=== PATIENT | female | born 1940 | race Caucasian/White ===

== ENCOUNTER 2019-08-08 11:51 | Emergency (ER) | payer MEDICARE, SELFPAY ==
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
[2019-08-08 11:55] VITALS: BP 151/71; PULSE 82; RESP 16; TEMP 36.7; O2SAT 99
--- NOTE | 2019-08-08 12:04 | ED.GENADULT ---
HPI - General Adult General Chief complaint: Wound/Laceration Stated complaint: tore toenail off Time Seen by Provider: 08/08/19 12:05 Source: patient and RN notes reviewed Mode of arrival: ambulatory Limitations: no limitations History of Present Illness HPI narrative: 78-year-old female presents with complaints of left great toenail damage, toe pain and swelling SPA COORDINATOR. Pressure applied to control bleeding. Hurts to bear weight. No radiation of pain. No numbness, tingling, or loss of mobility. Exacerbating factor applying weight. Denies inability to bear weight. Denies discoloration of toe (s). Denies suspect foreign body. Denies fever or chills. The patient reports she have not been diagnosed with COVID-19. The patient reports she is not waiting for the results of a COVID-19 lab test. The patient reports she do not have fever, chills, weakness, fatigue, myalgia, or facial swelling. The patient reports she do not have a new or worsening cough or shortness of breath. Denies chest pain. The patient reports she do not have any rhinorrhea, congestion, sore throat, nausea, vomiting, abdominal pain, and diarrhea. Tolerating po intake well. Denies recent traveling. Denies concerns for COVID-19 or exposures been home since [id number] order today was her first day out for essential household needs and injured her toe. At this time, patient is not suspected of having COVID-19. Some parts of this dictation were generated by voice recognition software and may contain typographical and/or grammatical inaccuracies. Related Data Home Medications Medication Instructions Recorded Confirmed Calcium 500 With D 1 cap PO DAILY 08/08/19 08/08/19 Vitamin C 1 tab-cap PO DAILY 08/08/19 08/08/19 enalapril maleate 5 mg PO DAILY 08/08/19 08/08/19 levothyroxine 50 mcg PO DAILY 08/08/19 08/08/19 lorazepam 1 mg PO TID 08/08/19 08/08/19 Allergies Allergy/AdvReac Type Severity Reaction Status Date / Time acetaminophen [From Vicodin] Allergy Verified 08/08/19 12:07 gabapentin Allergy Verified 08/08/19 12:07 hydrocodone [From Vicodin] Allergy Verified 08/08/19 12:07 hydromorphone [From Dilaudid] Allergy Verified 08/08/19 12:07 meperidine [From Demerol] Allergy Verified 08/08/19 12:07 Review of Systems Review of Systems: Narrative: CONSTITUTIONAL: Denies fever, chills, sweats. EYES: Denies visual changes, redness, discharge. ENT: Denies rhinorrhea, congestion, sore throat, otalgia. CARDIOVASCULAR: Denies chest pain, palpitations, edema. RESPIRATORY: Denies dyspnea, wheezing, cough. GASTROINTESTINAL: Denies abdominal pain, nausea, vomiting, diarrhea. GENITOURINARY: Denies dysuria, hematuria, abnormal discharge. SKIN: Denies rash or itching. MUSCULOSKELETAL: Denies acute back pain or myalgia. Complains of pain and swelling to left toe with damage toenail. NEUROLOGIC: Denies numbness or focal weakness. PSYCHIATRIC: Denies anxiety or depression. All systems reviewed & are unremarkable except as noted in HPI and below. [facility] Past Medical History Medical History (Updated 08/14/19 @ 15:17 by DELILAH Diamond) Anxiety Back pain with history of spinal surgery Hypercholesteremia Hypertension Surgical History Surgical History (Updated 08/09/19 @ 00:00 by Silvana Martinez) History of spinal surgery Hx of appendectomy Family History Family History (Updated 08/08/19 @ 13:11 by DELILAH Diamond) Father , in 50's from an explosive accident No problems noted. Mother Lung cancer Social History Social History (Updated 08/08/19 @ 13:12 by DELILAH Diamond) Smoking status: Former smoker Tobacco type: cigarettes Second hand tobacco smoke exposure: No Smoking end date: 03/03/69 Additional smoking assessment comments: quite 50 years ago Alcohol intake: never Substance use: never Living arrangements: with family Occupation/Education: retired Gender identity (
[2019-08-08] MEDS: TETANUS,DIPHTHERIA,AC PERTUSSIS ADULT (0.5 ML) BOOSTRIX IM (12:17)
--- NOTE | 2019-08-08 13:22 | PC.NURSE ---
post op shoe applied pt able to ambulate without difficulty. Bulky dressing applied to area.
== END 2019-08-08 13:30 | disposition home or self-care (01) ==
PROVIDERS: Emergency Provider Nurse Practitioner Family; PCP Family Medicine
DX: S92.422B Displaced fracture of distal phalanx of left great toe, initial encounter for open fracture (principal); X58.XXXA Exposure to other specified factors, initial encounter; Z87.891 Personal history of nicotine dependence; I10 Essential (primary) hypertension; E78.00 Pure hypercholesterolemia, unspecified; Z23 Encounter for immunization
CPT/HCPCS: 11760; 73660; 90471; 90715; 99204; G0463

== ENCOUNTER 2021-03-14 11:13 | Emergency (ER) | payer MEDICARE, SELFPAY ==
[2021-03-14] VITALS (14 sets, daily range): BP systolic 114–162; BP diastolic 59–76; PULSE 100–110; RESP 20–22; TEMP 37; O2SAT 95–100
--- NOTE | ~2021-03-14 | CT_ITS ---
EXAMINATION: CT soft tissue neck w con EXAM DATE: 03/14/2021 13:10 INDICATION: Worsening sore throat, patient feels it is swollen . TECHNIQUE: Spiral CT of the neck was performed following intravenous injection of 75 mL Omnipaque 350 . Axial, coronal and sagittal images were reviewed. The dose-length product (DLP) for this examinat ion was 287.15 mGy-cm. The exposure was tailored according to patient size (auto mA exposure control ), and iterative reconstruction (ASIR) was used as additional dose reduction technique. There is no prior study for comparison. FINDINGS: There is thickening of the aryepiglottic folds from edema, and edema of the piriform sinuse s. The epiglottis is normal in thickness. The glottis itself does not appear edematous. The thyroid g land is unremarkable. The submandibular and parotid glands are symmetric. There is no cervical ly mphadenopathy. There are no masses identified. The superior mediastinum is unremarkable. Paraph aryngeal and pre-glottic fat planes are preserved. The opacified vasculature is patent. Mild left c arotid bulb arteriosclerosis without stenosis. Patient has had bilateral ocular lens surgery. Mild to moderate right, mild left maxillary sinus mucoperiosteal thickening. Bilateral katie bullosa with the left opacified. Bilateral tree-in-bud distribution lung opacities which typically indicate s endobronchial spread of infection, possibly tuberculosis. Advanced disc disease at C5-6 and 6-7. A dvanced cervical arthropathy. IMPRESSION: 1. Edematous aryepiglottic folds and piriform sinuses. Normal epiglottis thickness. No retropharynge al abscess. 2. Right upper lobe predominant tree-in-bud pattern airspace disease. Probably endobronchial spread of infection, possibly tuberculosis. Reviewed, dictated and finalized at location A. O UNIFIED COMMUNICATIONS ENGINEER IMPRESSION: 1. Edematous aryepiglottic folds and piriform sinuses. Normal epiglottis thick ness. No retropharyngeal abscess. 2. Right upper lobe predominant tree-in-bud pattern airspace disease. Probably endobronchial spread of infection, possibly tuberculosis.
--- NOTE | 2021-03-14 11:35 | ED.GENADULT ---
HPI - General Adult General Chief complaint: Shortness of Breath/Dyspnea Stated complaint: DIFFICULTY BREATHING Time Seen by Provider: 03/14/21 11:13 History of Present Illness HPI narrative: 80-year-old female presenting the emergency department for evaluation of worsening sore throat. Patient was evaluated at an outside urgent care and had influenza and COVID testing which were both negative. Patient was started on prednisone for suspected laryngitis. Patient presents emerged department today complaining of worsening sore throat and difficulty swallowing. Patient states she has had difficulty taking her daily meds due to the sore throat. Related Data Home Medications Medication Instructions Recorded Confirmed Calcium 500 With D 1 cap PO DAILY 08/08/19 08/08/19 Vitamin C 1 tab-cap PO DAILY 08/08/19 08/08/19 enalapril maleate 5 mg PO DAILY 08/08/19 08/08/19 levothyroxine 50 mcg PO DAILY 08/08/19 08/08/19 lorazepam 1 mg PO TID 08/08/19 08/08/19 alendronate mg PO 03/14/21 gemfibrozil mg 03/14/21 lorazepam 03/14/21 prednisone 03/14/21 Allergies Allergy/AdvReac Type Severity Reaction Status Date / Time acetaminophen [From Vicodin] Allergy Verified 08/08/19 12:07 gabapentin Allergy Verified 08/08/19 12:07 hydrocodone [From Vicodin] Allergy Verified 08/08/19 12:07 hydromorphone [From Dilaudid] Allergy Verified 08/08/19 12:07 meperidine [From Demerol] Allergy Verified 08/08/19 12:07 Review of Systems Review of Systems: CONSTITUTIONAL: Denies fever, chills, or sweats. EYES: Denies visual changes, redness, or discharge. ENT: Patient does report worsening sore throat, she states it feels like there is a knot in her throat. CARDIOVASCULAR: Denies chest pain, palpitations, or edema. RESPIRATORY: Denies cough or dyspnea. GASTROINTESTINAL: Denies abdominal pain, nausea, vomiting, or diarrhea. GENITOURINARY: Denies dysuria or hematuria. SKIN: Denies rash or itching. MUSCULOSKELETAL: Denies back pain, joint pain, or myalgia. NEUROLOGIC: Denies headache, numbness, or weakness. PSYCHIATRIC: Denies anxiety or depression. [facility] Past Medical History Medical History (Updated 03/14/21 @ 14:32 by Shailesh Turner MD) Anxiety Back pain with history of spinal surgery Hypercholesteremia Hypertension Surgical History Surgical History (Updated 08/09/19 @ 00:00 by Silvana Martinez) History of spinal surgery Hx of appendectomy Family History Family History (Updated 08/08/19 @ 13:11 by DELILAH Diamond) Father , in 50's from an explosive accident No problems noted. Mother Lung cancer Social History Social History (Updated 08/08/19 @ 13:12 by DELILAH Diamond) Smoking status: Former smoker Tobacco type: cigarettes Second hand tobacco smoke exposure: No Smoking end date: 03/03/69 Additional smoking assessment comments: quite 50 years ago Alcohol intake: never Substance use: never Gender identity (if verbalized by the patient): Female Exam Narrative: APPEARANCE: Well appearing, no pain in distress, well-nourished. HEAD: normocephalic, atraumatic. EYES: PERRLA/EOMI, conjunctivae clear. NOSE: Normal no drainage EARS:TMS clear with good light reflex. THROAT: Normal posterior pharynx, no edema, patient handling her secretions well, some tenderness to palpation of the larynx NECK: Supple. No adenopathy, no masses. RESPIRATORY: Airway patent, respirations nonlabored. Clear to auscultation bilaterally, no rales, rhonchi, wheezing. No stridor CARDIOVASCULAR: Regular rate and rhythm without murmurs rubs or gallops. ABDOMINAL: Soft, nontender, nondistended, normal bowel sounds MUSCULOSKELETAL: Moves all extremities. Strength/ROM intact, No edema, No calf tenderness. NEURO: Alert. Cranial nerves II through XII intact. Good gait. Good coordination SKIN: Warm, dry. Normal Color PSYCHIATRIC: Normal affect/mood. Course Course Emergency Course: Patient was upd
--- NOTE | 2021-03-14 11:45 | PC.NURSE ---
Pt's daughter called out from room stating pt was having trouble breathing. RN to bedside, pt was previously laying nearly supine per pt request (chronic back pain). Pt was stridorous. Sat patient up, pt spit into tissues, coached through slow, deep breaths. Stridor resolved in less than one minute. Pt did not desat. HOB remains elevated, pt instructed to stay in sitting up position. Pt now calm with unlabored breathing. MD Turner made aware. Remains on monitor.
[2021-03-14 11:59] LABS: Basophils Absolute Auto 0.1 K/mm3 (0.0-0.1); Basophils Percent Auto 0.6 % (0.2-1.2); Eosinophils Absolute Auto 0.1 K/mm3 (0-0.3); Eosinophils Percent Auto 0.5 % (0-4.4); Hematocrit 36.9 % (37.0-47.0); Hemoglobin 11.9 g/dL (12.0-15.0); Immature Granulocyte Absolute 0.07 K/mm3 (0.00-0.031); Immature Granulocyte Percent A 0.7 % (0-0.5); Immature Platelet Fraction Pct 7.3 % (0.9-11.2); Lymphocytes Absolute Auto 1.09 K/mm3 (0.9-3.2); Lymphocytes Percent Auto 10.9 % (18.3-44.2); Mean Corpuscular HGB Conc 32.2 g/dl (32-36); Mean Corpuscular Hemoglobin 30.5 pg (26-34); Mean Corpuscular Volume 94.6 fl (80-100); Mean Platelet Volume 10.6 fl (7.4-10.4); Monocytes Absolute Auto 1.6 K/mm3 (0.1-0.6); Monocytes Percent Auto 15.8 % (2.6-8.5); Neutrophils Absolute Auto 7.2 K/mm3 (1.3-6.7); Neutrophils Percent Auto 71.5 % (45.5-73.1); Platelet Count Result 364 k/mm3 (150-375); Red Cell Distribution Width 12.2 % (11.5-14.5)
[2021-03-14] MEDS: fentaNYL CITRATE INJ (*CRX) 100 MCG/2 ML VIAL 27.2 MCG IV PUSH (12:29)
[2021-03-14 12:34] LABS: Alanine Aminotransferase 15 U/L (4-35); Albumin Level 4.1 g/dL (3.5-5.1); Alkaline Phosphatase 86 U/L (38-126); Anion Gap 12 mmol/L (8-16); Aspartate Amino Transferase 27 U/L (14-36); Bilirubin,Total 0.6 mg/dL (0.2-1.3); Blood Urea Nitrogen 21 mg/dL (7-17); Calcium 9.6 mg/dL (8.4-10.2); Carbon Dioxide 22 mmol/L (22-30); Chloride 106 mmol/L (98-107); Estimated Glomerular Filt Rate > 60; Glucose 100 mg/dL (65-110); Potassium 3.6 mmol/L (3.4-5.0); Sodium 140 mmol/L (137-145)
--- NOTE | 2021-03-14 15:35 | PC.NURSE ---
[facility] confirmed they received report. Spoke with April charge poster. Waiting ambulance transfer. Patient and patient's daughter updated.
== END 2021-03-14 18:23 | disposition short-term general hospital (02) ==
PROVIDERS: Emergency Provider Emergency Medicine; PCP Family Medicine
DX: R06.1 Stridor (principal); I10 Essential (primary) hypertension; E78.5 Hyperlipidemia, unspecified; F41.9 Anxiety disorder, unspecified
CPT/HCPCS: 36415; 70491; 80053; 85025; 85055; 87880; 96374; 99285; J3010; Q9967

== ENCOUNTER 2022-09-27 15:41 | Emergency (ER) | payer MEDICARE, SELFPAY ==
--- NOTE | ~2022-09-27 | XR_ITS ---
XR hip LT 2V w AP pelvis 09/27/2022 17:51 Indication: Left hip pain after recent fall Procedure: 3 views left hip including AP pelvis Comparison: No prior studies for comparison. Findings: There are fusion changes of the lumbar spine. There are surgical changes is transfixing the right femoral neck. Pelvic rings are intact. There is mild osteoarthritis of the hips. Osteopenia. M oderate colonic fecal loading. No acute fracture or traumatic malalignment. Impression: 1: No acute fracture. Reviewed, dictated and finalized at location A. Impression: 1: No acute fracture.
--- NOTE | ~2022-09-27 | XR_ITS ---
EXAMINATION: XR chest 1V 09/27/2022 17:51 INDICATION: Productive cough PROCEDURE: 2 view chest COMPARISON: No prior studies for comparison. FINDINGS: The lungs are clear. The cardiomediastinal silhouette is within normal limits. There are no pleural effusions. There is no pneumothorax suspected. There is evidence of chronic granulomatou s disease. IMPRESSION: 1: NO ACUTE CARDIOPULMONARY DISEASE. Reviewed, dictated and finalized at location A.
--- NOTE | ~2022-09-27 | CT_ITS ---
EXAMINATION: CT pelvis wo con DATE: 09/27/2022 22:19 INDICATION: Left hip pain. TECHNIQUE: Computed tomography (CT) of the pelvis was performed without intravenous contrast. The dos e-length product was 285.16 mGy-cm. Automated exposure control and iterative reconstruction technique were employed. COMPARISON: None FINDINGS: Pelvic rings are intact. No acute hip fracture. There is dynamic compression screw transfix ing the right femoral neck with an intramedullary mahogany in the femur. There is heterotopic ossification surrounding the right femoral neck. There are surgical changes consistent with fusion of the visuali zed aspects of the lower lumbar spine. Nonobstructive bowel gas pattern. Colonic diverticulosis witho ut evidence for diverticulitis. There is atherosclerosis of the aorta. No lymphadenopathy. No free ai r or free fluid. There is right renal cysts. IMPRESSION: 1. No acute fracture. Reviewed, dictated and finalized at location A. IMPRESSION: 1. No acute fracture.
[2022-09-27 16:19] VITALS: BP 142/84; PULSE 82; RESP 16; TEMP 36.6; O2SAT 97
[2022-09-27 21:49] VITALS: BP 174/86; PULSE 82; RESP 18; O2SAT 99
[2022-09-27] MEDS: KETOROLAC 30 MG/ML VIAL (*BKC) 15 MG IM (22:23)
--- NOTE | 2022-09-27 23:39 | ED.GENADULT ---
HPI - General Adult General Chief complaint: Back Pain/Injury Stated complaint: cough, back pain Time Seen by Provider: 09/27/22 21:48 History of Present Illness HPI narrative: Patient 81-year-old female who presents the emergency department with chief complaint of left sciatic/hip pain. The patient reports that for several days has been having pain in the left hip area and sciatic area the patient states that she put a call out to her primary care provider reports that the pain has gotten significantly worse and reports that the pain is worse with attempting to ambulate. Patient denies bowel or bladder incontinence denies foot drop denies numbness or tingling. The patient also reports for several days she has had a cough has been productive of yellow sputum but denies fever. Related Data Home Medications Medication Instructions Recorded Confirmed levothyroxine 50 mcg tablet See Rx Instructions .Route .COMPLEX 08/08/19 09/28/21 lorazepam 1 mg tablet 1 mg PO Q8H 08/08/19 09/28/21 alendronate 70 mg tablet 70 mg PO WEEKLY 03/14/21 09/27/21 gemfibrozil 600 mg tablet 600 mg PO BID 03/14/21 09/27/21 cholecalciferol (vitamin D3) 50 50 mcg PO DAILY 09/28/21 09/28/21 mcg (2,000 unit) capsule levothyroxine 75 mcg tablet See Rx Instructions .Route .COMPLEX 09/28/21 09/28/21 Allergies Allergy/AdvReac Type Severity Reaction Status Date / Time acetaminophen [From Vicodin] Allergy Verified 08/08/19 12:07 gabapentin Allergy Verified 08/08/19 12:07 hydrocodone [From Vicodin] Allergy Verified 08/08/19 12:07 hydromorphone [From Dilaudid] Allergy Verified 08/08/19 12:07 meperidine [From Demerol] Allergy Verified 08/08/19 12:07 Review of Systems Review of Systems: A 10 system review of systems was completed on the patient and is negative except for what is stated in the HPI. Nursing and ancillary documentation was reviewed. [facility] Past Medical History Medical History Anxiety Back pain with history of spinal surgery Hypercholesteremia Hypertension Hypertension Hypothyroidism Right femoral fracture Surgical History Surgical History History of spinal surgery Hx of appendectomy Family History Family History Father , in 50's from an explosive accident No problems noted. Mother Lung cancer Sibling Dementia Social History Social History Smoking packs per day: 1 Smoking cigarettes per day: 20.0 Years smoked: 17 Smoking pack-years: 17.00 Smoking status: Former smoker Tobacco type: cigarettes Second hand tobacco smoke exposure: No Smoking end date: 03/03/69 Additional smoking assessment comments: quite 50 years ago Alcohol intake: never Substance use: never Living arrangements: with family Occupation/Education: retired Gender identity (if verbalized by the patient): Female Exam Narrative: GENERAL: Well-appearing, well-nourished, and in no acute distress. HEAD: Normocephalic, atraumatic. EYES: PERRLA and EOMI. ENT: Nares clear, no rhinorrhea or epistaxis. Mucous membranes moist. NECK: Supple. CHEST: Clear to auscultation. No respiratory distress. HEART: Regular rate and rhythm. No murmur heard. Normal peripheral pulses. ABDOMEN: Soft, nontender, nondistended, normal active bowel sounds. EXTREMITIES: Normal range of motion. No edema. There is tenderness to palpation in the left SI joint area SKIN: Warm, dry, no rash. NEURO: No focal deficits. Alert and oriented x3. PSYCH: Normal mood and affect. Course Vital Signs Vital signs: Vital Signs Temperature 36.6 C 09/27/22 16:19 Pulse Rate 82 09/27/22 16:19 Respiratory Rate 16 09/27/22 16:19 Blood Pressure 142/84 H 09/27/22 16:19
== END 2022-09-27 23:54 | disposition home or self-care (01) ==
PROVIDERS: Emergency Provider Emergency Medicine; PCP Family Medicine
DX: M54.32 Sciatica, left side (principal); J06.9 Acute upper respiratory infection, unspecified; I10 Essential (primary) hypertension; E78.00 Pure hypercholesterolemia, unspecified; E03.9 Hypothyroidism, unspecified; F41.9 Anxiety disorder, unspecified; Z87.891 Personal history of nicotine dependence
CPT/HCPCS: 71045; 72192; 73502; 96372; 99284; J1100; J1885

== ENCOUNTER 2024-02-25 17:23 | Observation (INO) | payer MEDICARE, SELFPAY ==
--- NOTE | ~2024-02-25 | CT_ITS ---
EXAMINATION: CT cervical spine wo con DATE: 02/25/2024 18:47 INDICATION: Head injury. Fall. TECHNIQUE: Computed tomography (CT) of the cervical spine was performed without intravenous contrast. Automated exposure control and iterative reconstruction technique were employed. The dose-length pro duct was 105.27 mGy-cm. COMPARISON: None FINDINGS: There is 2 mm anterolisthesis of C3 on C4. There is 2 mm anterolisthesis of C5 on C6 and 2 mm anterolisthesis of C7 on T1. There is kyphosis of cervical spine. There is 7 degrees levocurvature . Vertebral body heights are normal. There is mildly decreased disc height at C3-C4. There is severel y decreased disc height from C4-C5 through C6-C7 and moderately decreased disc height at C7-T1. The f ollowing disc levels are specifically discussed: C2-C3: There is ankylosis of right uncovertebral joint without hypertrophy. There is ankylosis of the facet joints with severe hypertrophy. There is mild right neural foraminal stenosis. There is no denisse tral canal stenosis. C3-C4: There is severe bilateral uncovertebral joint osteoarthritis. There is severe bilateral facet joint osteoarthritis. There is moderate bilateral neural foraminal stenosis. There is mild central ca nal stenosis. C4-C5: There is severe bilateral uncovertebral joint osteoarthritis. There is severe right and modera te left facet joint osteoarthritis. There is moderate right and mild left neural foraminal stenosis. There is mild central canal stenosis. C5-C6: There is severe bilateral uncovertebral joint osteoarthritis. There is severe bilateral facet joint osteoarthritis. There is mild bilateral neural foraminal stenosis. There is moderate central ca nal stenosis. C6-C7: There is severe bilateral uncovertebral joint osteoarthritis. There is severe bilateral facet joint osteoarthritis. There is mild bilateral neural foraminal stenosis. There is mild central canal stenosis. C7-T1: There is mild bilateral uncovertebral joint osteoarthritis. There is severe bilateral facet suleiman int osteoarthritis. There is mild bilateral neural foraminal stenosis. There is no central canal sten osis. IMPRESSION: 1. No fracture. 2. Severe cervical spondylosis. Reviewed, dictated and finalized at location A. [facility]
--- NOTE | ~2024-02-25 | CT_ITS ---
EXAMINATION: CT brain wo con DATE: 02/25/2024 18:47 INDICATION: Head injury. Fall. TECHNIQUE: Computed tomography (CT) of the head was performed without intravenous contrast. The mA wa s adjusted according to patient size. Iterative reconstruction technique was employed. The dose-lengt h product was 605.33 mGy-cm. COMPARISON: None FINDINGS: There are scattered areas of low attenuation in the cerebral white matter. There is no intr acranial hemorrhage, acute infarction, or abnormal intracranial mass lesion. The ventricles are daisha l in size. There are likely changes of ocular lens replacement surgeries. There is mild mucosal thick ening in the paranasal sinuses. The mastoid air cells are normal. IMPRESSION: 1. Moderate nonspecific cerebral white matter disease, which likely represents chronic small vessel i schemic disease. Reviewed, dictated and finalized at location [facility]. [facility] IMPRESSION: 1. Moderate nonspecific cerebral white matter disease, which likely represents chronic small vessel ischemic disease.
[2024-02-25 17:31] VITALS: BP 138/66; PULSE 91; RESP 16; TEMP 36.6; O2SAT 98
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
--- NOTE | 2024-02-25 19:18 | PC.NURSE ---
1800: Pts daughter voices interest in information on hospice. State pt not eating or drinking sleeps most of day. PMD has suggested hospice to family. Dr. Wyatt informed
--- NOTE | 2024-02-25 21:31 | PM.IMHP ---
H&P: HPI History of Present Illness Date/Time: 02/25/24 21:31 Chief Complaint: Recurrent falls Narrative: Patient is an 83-year-old female with advanced Alzheimer's dementia, [facility] has been having recurrent falls lately was brought to the emergency room by her daughter according to daughter patient had a fall ground level early in the day brought her to the emergency room request comfort measures only declines all status. Patient has been admitted for comfort care measures only. EXAMINATION: CT brain wo con DATE: 02/25/2024 18:47 INDICATION: Head injury. Fall. TECHNIQUE: Computed tomography (CT) of the head was performed without intravenous contrast. The mA was adjusted according to patient size. Iterative reconstruction technique was employed. The dose-length product was 605.33 mGy-cm. COMPARISON: None FINDINGS: There are scattered areas of low attenuation in the cerebral white matter. There is no intracranial hemorrhage, acute infarction, or abnormal intracranial mass lesion. The ventricles are normal in size. There are likely changes of ocular lens replacement surgeries. There is mild mucosal thickening in the paranasal sinuses. The mastoid air cells are normal. IMPRESSION: 1. Moderate nonspecific cerebral white matter disease, which likely represents chronic small vessel ischemic disease. EXAMINATION: CT cervical spine wo con DATE: 02/25/2024 18:47 INDICATION: Head injury. Fall. TECHNIQUE: Computed tomography (CT) of the cervical spine was performed without intravenous contrast. Automated exposure control and iterative reconstruction technique were employed. The dose-length product was 105.27 mGy-cm. COMPARISON: None FINDINGS: There is 2 mm anterolisthesis of C3 on C4. There is 2 mm anterolisthesis of C5 on C6 and 2 mm anterolisthesis of C7 on T1. There is kyphosis of cervical spine. There is 7 degrees levocurvature. Vertebral body heights are normal. There is mildly decreased disc height at C3-C4. There is severely decreased disc height from C4-C5 through C6-C7 and moderately decreased disc height at C7-T1. The following disc levels are specifically discussed: C2-C3: There is ankylosis of right uncovertebral joint without hypertrophy. There is ankylosis of the facet joints with severe hypertrophy. There is mild right neural foraminal stenosis. There is no central canal stenosis. C3-C4: There is severe bilateral uncovertebral joint osteoarthritis. There is severe bilateral facet joint osteoarthritis. There is moderate bilateral neural foraminal stenosis. There is mild central canal stenosis. C4-C5: There is severe bilateral uncovertebral joint osteoarthritis. There is severe right and moderate left facet joint osteoarthritis. There is moderate right and mild left neural foraminal stenosis. There is mild central canal stenosis. C5-C6: There is severe bilateral uncovertebral joint osteoarthritis. There is severe bilateral facet joint osteoarthritis. There is mild bilateral neural foraminal stenosis. There is moderate central canal stenosis. C6-C7: There is severe bilateral uncovertebral joint osteoarthritis. There is severe bilateral facet joint osteoarthritis. There is mild bilateral neural foraminal stenosis. There is mild central canal stenosis. C7-T1: There is mild bilateral uncovertebral joint osteoarthritis. There is severe bilateral facet joint osteoarthritis. There is mild bilateral neural foraminal stenosis. There is no central canal stenosis. IMPRESSION: 1. No fracture. 2. Severe cervical spondylosis. Review of Systems Review of Systems: ROS unobtainable: Yes unobtainable due to mental status (Lethargy) [facility] Past Medical History Medical History Hypothyroidism Hypertension Right femoral fracture Back pain with history of spinal surgery Anxiety Hypercholesteremia Hypertension Surgical History Surgical History History of spinal surgery Hx of appendectomy Family History Family History Father , in 50's from an explosive accident No problems noted. Mother Lung cancer Sibling Dementia Social History Social History Smoking packs per day: 1 Smoking cigarettes per day: 20.0 Years smoked: 17 Smoking pack-years: 17.00 Smoking status: Former smoker Tobacco type: cigarettes Second hand tobacco smoke exposure: Yes Smoking end date: 03/03/69 Additional smoking assessment comments: quite 50 years ago Alcohol intake: never Substance use: never Living arrangements: with family Occupation/Education: retired Gender identity (if verbalized by the patient): Female Spiritual care concerns: No Meds Home Medications and Allergies Home Medications ?Medication ?Instructions ?Recorded ?Confirmed ?Type levothyroxine 50 mcg tablet See Rx Instructions .Route .COMPLEX 08/08/19 02/25/24 History lorazepam 1 mg tablet 1 mg PO Q8H 08/08/19 02/25/24 History gemfibrozil 600 mg tablet 600 mg PO BID 03/14/21 02/25/24 History levothyroxine 75 mcg tablet See Rx Instructions .Route .COMPLEX 09/28/21 02/25/24 History prednisone 20 mg tablet 40 mg (2 x 20 mg) PO DAILY 5 days 09/27/22 02/25/24 Rx #10 tabs acetaminophen 500 mg tablet 1,000 mg PO Q6H PRN pain 02/25/24 02/25/24 History ascorbic acid (vitamin C) 250 mg 250 mg PO DAILY 02/25/24 02/25/24 History tablet donepezil 10 mg tablet 10 mg PO DAILY 02/25/24 02/25/24 History epinephrine 0.3 mg/0.3 mL 0.3 mg IM .COMPLEX PRN anaphylaxis 02/25/24 02/25/24 History injection, auto-injector ibandronate 150 mg tablet 150 mg PO .fri-fri02/25/24 02/25/24 History mecobalamin (vitamin B12) 1,000 1,000 mcg PO DAILY 02/25/24 02/25/24 History mcg chewable tablet memantine 10 mg tablet 10 mg PO DAILY 02/25/24 02/25/24 History mirtazapine 15 mg tablet 15 mg PO HS 02/25/24 02/25/24 History multivitamin-iron sulfate 15 1 tablet PO DAILY 02/25/24 02/25/24 History mg-folic acid 400 mcg tablet (Tab-A-Celena Multivitamin w-iron) polyethylene glycol 3350 17 gram 17 g PO DAILY PRN constipation 02/25/24 02/25/24 History oral powder packet polysorbate 80-glycerin 1 %-1 % 1 drp ophthalmic (eye) TID PRN dry 02/25/24 02/25/24 History eye drops eye(s) Allergies Allergy/AdvReac Type Severity Reaction Status Date / Time acetaminophen (From Vicodin) Allergy Verified 08/08/19 12:07 gabapentin Allergy Verified 08/08/19 12:07 hydrocodone (From Vicodin) Allergy Verified 08/08/19 12:07 hydromorphone (From Dilaudid) Allergy Verified 08/08/19 12:07 meperidine (From Demerol) Allergy Verified 08/08/19 12:07 Vital Signs Vital Signs - 24 hr 02/25/24 17:31 Temperature 97.8 F Pulse Rate 91 Respiratory Rate 16 Blood Pressure 138/66 Pulse Oximetry 98 Oxygen Delivery Room Air Exam Narrative: Patient is laying in bed Const: General: comfortable, no acute distress, well developed, ill appearing chronically (Patient looks terminal) and cachectic Nutritional Appearance: cachectic Orientation/consciousness: oriented to person and lethargic HENMT: Head: normal to inspection, normocephalic and atraumatic Ears: hearing grossly normal bilaterally Face/Nose/Sinus: normal facial exam Face and sinus: normal facial exam Other: Bilateral temporal muscle wasting Eyes: General: appearance normal, both eyes and all related structures Pupils: Equal, round and reactive pupils present EOM: EOMs intact bilaterally Neck: Neck: full ROM, no lymphadenopathy and no JVD Thyroid: thyroid normal Lymphatic: no lymphadenopathy noted Resp: Effort & Inspection: normal respiratory effort and able to speak in complete sentences Auscultation: clear to auscultation bilaterally Cardio: Jugular venous distension: no JVD Rate: regular rate Rhythm: regular rhythm Heart sounds: S1 normal heart sound present and S2 normal heart sound present GI: GI Palp: Yes Soft to palpation and Yes No hepatosplenomegaly present : General: Yes deferred Skin: Rashes: no rashes Wounds: no wounds Neuro: General: oriented to person Cranial nerves: Yes CN's II-XII intact bilaterally and Yes Equal, round and reactive pupils present Cognition (Neuro): abnormal cognition (Lethargy) Speech: normal speech Gait exam (Neuro): Unable to assess gait Extrem: General: normal to inspection, full ROM, no joint enlargement and no pedal edema Assessment and Plan Assessment and plan (1) Multiple falls: Code(s): R29.6 - Repeated falls Status: Acute Assessment and Plan: Comfort care measures only (2) Adult failure to thrive: Code(s): R62.7 - Adult failure to thrive Status: Acute Assessment and Plan: Comfort care measures only (3) Comfort measures only status: Code(s): Z51.5 - Encounter for palliative care Status: Acute Assessment and Plan: Discussed with daughter Hospitalist [facility] Advance Care Plan I have confirmed that the patient's Advanced Care Plan is present, code status is documented, or surrogate decision maker is listed in patient medical record.: Yes Medication Reconciliation I have utilized all available resources to obtain, update and review the patients current medications (includes all prescriptions, OTC, herbals, cannabis, and nutritional supplements).: Yes
--- NOTE | 2024-02-25 21:31 | PC.NURSE ---
Pt to be comfort measures only, Dr. Birch and pt's daughter Emma and Dr. birch are witnesses.
[2024-02-25 22:18] VITALS: BP 114/63; PULSE 95; RESP 16; TEMP 36.4; O2SAT 96
[2024-02-25 22:56] VITALS: BP 118/54; PULSE 90; RESP 18; TEMP 36.6; O2SAT 95; BMI 16.0
--- NOTE | 2024-02-25 23:17 | ADMGEN ---
This patient, Anita Lopez, was admitted to Medical Room 347-. Patient/family oriented to hospital policies and general routines including ID bracelet, bed and alarms, visiting hours, pain management, procedures, bathroom and other care routines, personal items, smoking policy, room service/diet, and visiting hours. Information on how to activate the Rapid Response Team has been discussed. Patient/Family are encouraged to report perceived risks to care and to ask questions if they do not understand what they are told or what they should do.
[2024-02-26 06:00] VITALS: BP 120/56; PULSE 94; RESP 18; TEMP 36.6; O2SAT 98
[2024-02-26] MEDS: SODIUM CHLORIDE 0.9% IV 1,000 ML 125 ML IV CONT (06:01)
[2024-02-26 07:43] VITALS: O2SAT 96
[2024-02-26 08:00] VITALS: BP 112/54; PULSE 86; RESP 16; TEMP 36.8; O2SAT 96
--- NOTE | 2024-02-26 12:13 | P.PNIM_ITS ---
Progress Note: A&P Assessment and Plan (1) Multiple falls: Code(s): R29.6 - Repeated falls Status: Acute Assessment and Plan: Comfort care measures only 02/26/24: * Fall precautions for safety. (2) Adult failure to thrive: Code(s): R62.7 - Adult failure to thrive Status: Acute Assessment and Plan: Comfort care measures only 02/26/24: * Care coordination consult for Hospice initiation. * PRN Morphine and Ativan. * Discussed hospice process with daughter and she is in agreement. (3) Comfort measures only status: Code(s): Z51.5 - Encounter for palliative care Status: Acute Assessment and Plan: Discussed with daughter Time Spent With Patient Time with patient: 25 - 35 minutes Subjective Date/time seen: 02/26/24 12:13 Interval history: This pt was evaluated at the bedside this AM with her daughter present as well as the RN and myself as I was told this AM by RN that the pt did not want to be a DNR. Pt was questioned together and was found that her memory is waxing and waning and she is overall not deemed to be decisional. She has continued memory deficit and falls asleep during conversation. She is obviously malnourished and her daughter who is POA continues to endorse wanting Hospice at this time as she is not improving. No acute distress noted. Review of Systems 2 Review of Systems: All systems reviewed & are unremarkable except as noted in HPI and below Exam Const: General: comfortable and no acute distress Other: Thin and emaciated female lying supine in no acute distress. She appears very fatigued and falls asleep talking. HENMT: Mouth: Yes dry mucous membranes Eyes: General: appearance normal, both eyes and all related structures Neck: Neck: supple and no JVD Resp: Effort & Inspection: normal respiratory effort Auscultation: diminished lung sounds Other: Diminished due to decreased effort. Cardio: Rate: regular rate Rhythm: regular rhythm Heart sounds: no gallops, no murmurs and no rubs GI: Inspection: non-distended GI Palp: Yes Soft to palpation, No Tenderness to palpation present (GI) and No Guarding due to palpation present (GI) Auscultation: normal bowel sounds Skin: General skin exam: No normal color (pale) and no rashes or lesions noted Rashes: no rashes noted Wounds: wounds noted (abrasion to left elbow) Neuro: Speech: normal speech Other: generalized, non-focal weakness present. Extrem: General: normal to inspection and no edema Psych: Other: Flat affect Objective Data Vital Signs Vital Signs: Vital Signs - 24 hr 02/25/24 17:31 02/25/24 22:18 02/25/24 22:56 Temperature 97.8 F 97.6 F 97.8 F Pulse Rate 91 95 90 Respiratory Rate 16 16 18 Blood Pressure 138/66 114/63 118/54 L Pulse Oximetry 98 96 95 Oxygen Delivery Room Air Fraction of Inspired Oxygen 02/26/24 06:00 02/26/24 07:43 02/26/24 08:00 Temperature 97.8 F 98.2 F Pulse Rate 94 86 Respiratory Rate 18 16 Blood Pressure 120/56 L 112/54 L Pulse Oximetry 98 96 96 Oxygen Delivery Room Air Fraction of Inspired Oxygen 21 Intake/Output Intake/Output: Intake & Output 02/23/24 02/24/24 02/25/24 02/26/24 23:59 23:59 23:59 23:59 Intake Total 170 Output Total 250 Balance -80 Meds/Results Medications: Active Medications Generic Name Dose Route Start Last Admin Trade Name Freq PRN Reason Stop Dose Admin Sodium Chloride 1,000 mls @ 125 mls/hr 02/25/24 21:40 02/26/24 06:01 Normal Saline Iv IV CONT 125 mls/hr .Q8H NAVEED Administration Lorazepam 1 mg 02/26/24 03:55 Lorazepam Inj (*Crx) 2 Mg/Ml Vial IV PUSH Q6H PRN Anxiety Morphine Sulfate 2 mg 02/26/24 03:55 Morphine Sulfate (*Crx) 2 Mg/Ml Inj IV PUSH Q4H PRN Pain Rated 7-10 Ondansetron HCl 4 mg 02/25/24 21:40 Ondansetron Inj 4 Mg/2 Ml Vial IV PUSH Q4H PRN Nausea Radiology Results: ITS Impressions Head CT 02/25/24 18:51 IMPRESSION: 1. Moderate nonspecific cerebral white matter disease, which likely represents chronic small vessel ischemic disease. Cervical Spine CT 02/25/24 18:53 IMPRESSION: 1. No fracture. 2. Severe cervical spondylosis. Quality If No VTE Prophylaxis Answer both mechanical and pharmacologic: Reason no mechanical VTE proph: patient/caregiver refusal Reason no pharmacologic proph: patient/caregiver refusal
--- NOTE | 2024-02-26 13:54 | PM.DS ---
DS: Admitting Diagnosis Discharge Date 02/26/24 Admitting Diagnosis Failure to Thrive, End of Life care DS: Discharge Diagnosis Discharge Diagnosis (1) Multiple falls: Code(s): R29.6 - Repeated falls Status: Acute Assessment and Plan: Comfort care measures only 02/26/24: Fall precautions for safety. (2) Adult failure to thrive: Code(s): R62.7 - Adult failure to thrive Status: Acute Assessment and Plan: Comfort care measures only 02/26/24: Care coordination consult for Hospice initiation. PRN Morphine and Ativan. Discussed hospice process with daughter and she is in agreement. (3) Comfort measures only status: Code(s): Z51.5 - Encounter for palliative care Status: Acute Assessment and Plan: Discussed with daughter DS: Summary Hospital Course Reason for hospitalization: Failure to thrive, Increasing Weakness Hospital Course: Patient is an 83-year-old female with advanced Alzheimer's dementia, resides [facility] has been having recurrent falls lately was brought to the emergency room by her daughter. According to daughter patient had a fall ground level early in the day yesterday with increasing weakness so she brought her to the emergency room and requested comfort measures only declines all status. Patient was admitted for initiation of Hospice and comfort care measures only. Pt was evaluated at the bedside this AM with her daughter present as well as the RN and myself as I was told this AM by RN that the pt did not want to be a DNR. Pt was questioned together and was found that her memory is waxing and waning and she is overall not deemed to be decisional. She has continued memory deficit and falls asleep during conversation. She is obviously malnourished and her daughter who is POA continues to endorse wanting Hospice at this time as she is not improving and siblings all agree. At this point as the pt is not taking in any nutrition and appears to be cachectic and weak, I can say with a certain degree of medical certainty that the pt likely has less than 6 months of life left. Care Coordination was consulted and they have arranged Hospice set up with [facility]. Pt is to be discharged at this time and they will be out to initiate hospice services tomorrow. Status at Discharge Cognitive/behavioral status at discharge: Dementia present with confusion Functional status at discharge: bed bound Overall status at discharge: other (Pt is overall declining) Time Spent with Patient Time attestation: Total time spent providing and/or coordinating discharge services: Time spent: Greater than 30 minutes Specific discharge activities: Initiation of Hospice Exam Narrative: Patient is laying in bed Const: General: comfortable, no acute distress, well developed, ill appearing chronically (Patient looks terminal), lethargic and cachectic Nutritional Appearance: cachectic Orientation/consciousness: oriented to person and lethargic Other: Thin and emaciated female lying supine in no acute distress. She appears very fatigued and falls asleep talking. HENMT: Head: normal to inspection, normocephalic and atraumatic Ears: hearing grossly normal bilaterally Face/Nose/Sinus: normal facial exam Face and sinus: normal facial exam Mouth: Yes dry mucous membranes Other: Bilateral temporal muscle wasting Eyes: General: appearance normal, both eyes and all related structures Pupils: Equal, round and reactive pupils present EOM: EOMs intact bilaterally Neck: Neck: full ROM, no lymphadenopathy, supple and no JVD Thyroid: thyroid normal Lymphatic: no lymphadenopathy noted Resp: Effort & Inspection: normal respiratory effort and able to speak in complete sentences Auscultation: clear to auscultation bilaterally and diminished lung sounds Other: Diminished due to decreased effort. Cardio: Jugular venous distension: no JVD Rate: regular rate Rhythm: regular rhythm Heart sounds: S1 normal heart sound present, S2 normal heart sound present, no gallops, no murmurs and no rubs GI: Inspection: non-distended Auscultation: normal bowel sounds : General: Yes deferred Skin: General skin exam: No normal color (pale), no rashes or lesions noted, No rashes and wounds noted (abrasion to left elbow) Rashes: no rashes and no rashes noted Wounds: no wounds and wounds noted (abrasion to left elbow) Neuro: General: oriented to person and Unable to assess gait Cranial nerves: Yes CN's II-XII intact bilaterally and Yes Equal, round and reactive pupils present Cognition (Neuro): abnormal cognition (Lethargy) Speech: normal speech Gait exam (Neuro): Unable to assess gait Other: generalized, non-focal weakness present. Extrem: General: normal to inspection, full ROM, no joint enlargement, no pedal edema and no edema Psych: Other: Flat affect DS: Data Data Completed and Pending Completed studies during hospitalization: ITS Impressions Head CT 02/25/24 18:51 IMPRESSION: 1. Moderate nonspecific cerebral white matter disease, which likely represents chronic small vessel ischemic disease. Cervical Spine CT 02/25/24 18:53 IMPRESSION: 1. No fracture. 2. Severe cervical spondylosis. Discharge Plan Discharge Attending physician on discharge: Therese Madrigal Discharging Clinician: Therese Madrigal Anticipated Discharge Date/Time: 02/26/24 14:01 Patient Disposition: Hospice - Medical Facility Activity: as tolerated Diet: as tolerated Discharge Instructions: [facility] will meet with you tomorrow to establish care. Patient Instructions: Hospice Care (GEN), Failure to Thrive in Older Adults (DC) Patient Language: Salvadorean Stand Alone Forms: General Discharge Information Discharge Medications: Continued levothyroxine 50 mcg tablet See Rx Instructions .ROUTE .COMPLEX Rx Instructions: Take one tablet by mouth once daily on Friday, Friday, Friday, , and Friday lorazepam 1 mg tablet 1 mg PO Q8H gemfibrozil 600 mg tablet 600 mg PO BID prednisone 20 mg tablet 40 mg PO DAILY 5 Days Qty: 10 0RF acetaminophen 500 mg tablet 1,000 mg PO Q6H PRN (Reason: pain) polyethylene glycol 3350 17 gram powder in packet 17 g PO DAILY PRN (Reason: constipation) donepezil 10 mg tablet 10 mg PO DAILY memantine 10 mg tablet 10 mg PO DAILY ibandronate 150 mg tablet 150 mg PO .fri-fri Tab-A-Celena Multivitamin w-iron 15 mg iron- 400 mcg tablet 1 tablet PO DAILY mirtazapine 15 mg tablet 15 mg PO HS ascorbic acid (vitamin C) 250 mg tablet 250 mg PO DAILY epinephrine 0.3 mg/0.3 mL auto-injector 0.3 mg IM .COMPLEX PRN (Reason: anaphylaxis) Rx Instructions: 0.3 mg intramuscularly once adpr776 PRN; polysorbate 80-glycerin 1-1 % drops 1 drp ophthalmic (eye) TID PRN (Reason: dry eye(s)) mecobalamin (vitamin B12) 1,000 mcg tablet,chewable 1,000 mcg PO DAILY levothyroxine 75 mcg Tablet See Rx Instructions .ROUTE .COMPLEX Rx Instructions: Take one tablet by mouth once daily on Friday and Friday Date of admission: 02/25/24 21:40 Primary Care Provider: MahiSimeon Admitting Provider: Mare Lopes V. Attending physician on admission: Therese Madrigal Condition: Terminal Care Plan Goals: End of life care to be established with hospice. Quality If No VTE Prophylaxis Answer both mechanical and pharmacologic: Reason no mechanical VTE proph: patient/caregiver refusal Reason no pharmacologic proph: patient/caregiver refusal Hospitalist MIPS Heart Failure (Exclusion) Patient has history of Heart Transplant or Left Ventricular Assistive Device?: No IF YES, STOP HERE Heart Failure (Qualifier) Patient has current or prior documentation of LVEF less than or equal to 40%, or mod/servere depressed LVSF?: No IF NO, STOP HERE
== END 2024-02-26 15:22 | disposition hospice, inpatient (51) ==
LOC: ANHED 21:39 → ANH3MED 22:36
PROVIDERS: Admitting Provider Internal Medicine; Emergency Provider Emergency Medicine; PCP Family Medicine; Visit Provider Nurse Practitioner Adult Health
DX: R62.7 Adult failure to thrive (principal); R29.6 Repeated falls; Z51.5 Encounter for palliative care; E46 Unspecified protein-calorie malnutrition; Z68.1 Body mass index [BMI] 19.9 or less, adult; G30.9 Alzheimer's disease, unspecified; F02.80 Dementia in other diseases classified elsewhere, unspecified severity, without behavioral disturbance, psychotic disturbance, mood disturbance, and anxiety; E03.9 Hypothyroidism, unspecified; I10 Essential (primary) hypertension; F41.9 Anxiety disorder, unspecified; E78.00 Pure hypercholesterolemia, unspecified; Z66 Do not resuscitate; Z98.890 Other specified postprocedural states; Z87.891 Personal history of nicotine dependence; Z79.899 Other long term (current) drug therapy
CPT/HCPCS: 70450; 72125; 99285; G0378; J7030